=== PATIENT | male | born 1970 | race Two or more races ===

== ENCOUNTER 2024-02-03 06:26 | Day surgery (SDC) | payer OTHER ==
[2024-02-03] MEDS ORDERED: FLUMAZENIL 0.5 MG/5 ML ML IV STA (10:03)
[2024-02-03] MEDS ORDERED: DIPHENHYDRAMINE HCL 50 MG/ML VIAL 1ML IV ONE (10:15)
[2024-02-03] MEDS ORDERED: MIDAZOLAM HCL 2 MG/2 ML VIAL IV ONE (10:15)
[2024-02-03] MEDS ORDERED: fentaNYL CITRATE 50 MCG/ML AMPUL IV PUSH ONE (10:15)
== END 2024-02-03 11:35 | disposition home or self-care (01) ==
LOC: AMB-ENDOS 06:26
PROVIDERS: ATTEND Colon & Rectal Surgery
DX: K62.1 Rectal polyp (principal); K64.9 Unspecified hemorrhoids